=== PATIENT | male | born 1995 | race African-American/Black ===

== ENCOUNTER 2016-03-21 18:05 | Emergency (ER) | payer BC, MEDICAID ==
--- NOTE | 2016-03-21 19:42 | ERRECORD ---
[facility] EMERGENCY RECORD HPI FLU-LIKE SYNDROME (18:53 MPUR) CHIEF COMPLAINT: Patient presents for evaluation of body aches, sore throat, fever, Measured maximum temperature 100.5 degrees, taken orally. HISTORIAN: History provided by patient, onset this am of fever, body aches and pains, malaise. Has continued all day. LOCATION: Symptoms are generalized. ASSOCIATED WITH: No associated abdominal pain, No associated chest pain, No associated cough, No associated diarrhea, No associated headache, No associated neck pain, No associated rash, No associated shortness of breath, No associated urinary tract infection signs or symptoms. RELIEVED BY: Patient's condition relieved by nothing. ROS (18:53 MPUR) CONSTITUTIONAL: Historian reports chills, Historian reports fever, Historian reports malaise, Historian reports weakness. EYES: Historian denies eye pain, Historian denies eye redness, Historian denies eye discharge, Historian denies itching. ENT: Historian denies epistaxis, Historian denies hearing changes, Historian denies otalgia, Historian reports rhinorrhea, Historian denies sore throat. CARDIOVASCULAR: Historian denies chest pain, Historian denies dyspnea on exertion. RESPIRATORY: Historian denies cough, Historian denies shortness of breath, Historian denies wheezing. GI: Historian denies abdominal pain, Historian reports anorexia, Historian denies constipation, Historian denies diarrhea, Historian reports nausea,. MUSCULOSKELETAL: Historian reports arthralgias, Historian reports myalgias, Historian denies neck pain. SKIN: Historian denies pruritis, Historian denies rash, Historian denies skin lesions. NEUROLOGIC: Historian denies headache, Historian reports lethargy, Historian denies mental status changes, Historian denies sensory changes. ALLERGIC/IMMUNOLOGIC: Normal allergy/immunologic system review. NOTES: All systems reviewed, negative except as described above. PAST MEDICAL HISTORY (18:23 JPAR) MEDICAL HISTORY: Flu vaccine not up to date, Tetanus immunization up to date. MALE SURGICAL HISTORY: collar bone reconstruction/ mesh. KNOWN ALLERGIES No Known Drug Allergies &a-1R&a+25V*p+0X*[id number]*c202B*c15G*c2P*p-0X&a-25V&a+1R Name: Anthony James : 1995 M21 MedRec: [id number] AcctNum: [id number] Prepared: SunMar 22, 2016 00:02 by Interface Page 1 of 3 pMD [facility] EMERGENCY RECORD CURRENT MEDICATIONS (18:22 JPAR) None VITAL SIGNS VITAL SIGNS: BP: 128/75, Pulse: 117, Resp: 18, Temp: 99.6 (Oral), Pain: 7, O2 sat: 97, Time: 03/21/2016 18:17. (18:17 JPAR) BP: 110/57, Pulse: 97, Resp: 20, Temp: 100.9, O2 sat: 95 on RA, Time: 03/21/2016 19:15. (19:15 KASA) PHYSICAL EXAM (18:53 MPUR) CONSTITUTIONAL: Vital signs reviewed, Patient febrile, Blood pressure normal, Respiratory rate normal, Patient appears, uncomfortable, Patient appears in pain, in mild pain distress, Patient alert and oriented to person, place and time. HEAD: Head exam included findings of head atraumatic, normocephalic. EYES: Eye exam included findings of eyelids normal to inspection, Pupils equally round and reactive to light, Extraocular muscles intact, Conjunctiva normal, Sclera normal. ENT: Ear exam normal, Nose exam normal, Pharynx exam normal, Uvula exam normal, Tonsil exam normal, Mouth exam normal. NECK: Neck exam included findings of normal range of motion, Trachea midline, Thyroid normal. RESPIRATORY CHEST: Respiratory and chest exam normal, Breath sounds clear, No rales, No rhonchi, Chest exam included findings of chest movement symmetrical. CARDIOVASCULAR: Cardiovascular assessment normal, Cardiovascular exam included findings of heart rate regular rate and rhythm, Heart sounds normal. BACK: Back exam normal, Back exam included findings of normal inspection, range of motion normal, no tenderness, no costovertebral angle tenderness. UPPER EXTREMITY: Upper extremity exam included findings of inspection normal, Range of motion normal, Motor strength normal, Sensation intact, Radial pulse normal. LOWER EXTREMITY: Lower extremity exam included findings of inspection normal, Range of motion normal, Motor strength normal, Sensation intact. NEURO: Milagro coma scale 15, Neuro exam findings include patient oriented to person, place and time, Speech normal, Gait normal, Memory normal, Cranial nerves intact. SKIN: Skin exam included findings of skin warm, dry, and normal in color, no rash. PSYCHIATRIC: Psychiatric exam included findings of patient oriented to person place and time, Normal affect, Judgment normal, Insight normal, Remote memory normal. DOCTOR NOTES (18:53 MPUR) &a-1R&a+25V*p+0X*[id number]*c202B*c15G*c2P*p-0X&a-25V&a+1R Name: Anthony James : 1995 M21 MedRec: [id number] AcctNum: [id number] Prepared: SunMar 22, 2016 00:02 by Interface Page 2 of 3 pMD [facility] EMERGENCY RECORD TEXT: Sxs consistent with a strep. Have advised AB, fluids, fever control with Tylenol and/or ibuprofen, rest. pt instructed to follow up with the family physician in a few days if it continues to worsen. PROBLEM LIST No recorded problems DIAGNOSIS (19:01 MPUR) FINAL: PRIMARY: strep Throat. PRESCRIPTION (19:02 MPUR) Pen-Vee K: TABLET : 500 mg : ORAL : Quantity: 1 Unit: tab(s) Route: ORAL Schedule: 4 times a day Dispense: 40 May substitute. Refills: No Refills . NOTES: No Refills. DISPOSITION PATIENT: Disposition Type: Discharge, Disposition: *Discharge Home. (19:01 LINA) Patient left the department. (19:25 ROBE) Jewell: BHARATH=MATHEUS Phan, Jeremiah NAGEL=MATHEUS Field, Tracy MPUR=MD Gabriel, Terence &a-1R&a+25V*p+0X*[id number]*c202B*c15G*c2P*p-0X&a-25V&a+1R Name: Anthony James : 1995 M21 MedRec: [id number] AcctNum: [id number] Prepared: SunMar 22, 2016 00:02 by Interface Page 3 of 3 pMD MTDD
--- NOTE | 2016-03-21 20:13 | PICIS ---
[facility] EMERGENCY RECORD TRIAGE (SunMar 21, 2016 18:22 JPAR) TRIAGE NOTES: Flu like symptoms, and sore throat. (SunMar 21, 2016 18:22 JPAR) PATIENT: NAME: Anthony James, AGE: 21, GENDER: male, : Sun1995, TIME OF GREET: SunMar 21, 2016 18:06, PREFERRED LANGUAGE: Slovak, ETHNICITY: Not or , ECODE BILLING MAP: [facility], SSN: [id number], Zip Code: [address], KG WEIGHT: 97.52, PHONE: , , , PERSON ID: [id number], PCP: [facility]. (SunMar 21, 2016 18:22 JPAR) COMPLAINT: C/O HEADACHE,BODY ACHES SINCE TODAY,SORE THROAT. (SunMar 21, 2016 18:22 JPAR) ADMISSION: URGENCY: 4 Non Urgent, ADMISSION SOURCE: Home, TRANSPORT: CAR, BED: TRIAGE. (SunMar 21, 2016 18:22 JPAR) ASSESSMENT: Assessment: flu like symptoms, Symptoms began last night, Symptoms began yesterday. (18:23 JPAR) SIRS SCORING: Heart Rate 110-139 (2), Temp range 96.8-101.1 (0), respiratory rate 12-24 (0), Mental Status altered: no (0), Infection or Suspected Infection: No. (18:23 JPAR) TRIAGE SCREENING: Patient denies suicidal ideation, Patient denies presence of domestic violence. (18:23 JPAR) PROVIDERS: TRIAGE NURSE: Jeremiah Phan RN. (SunMar 21, 2016 18:22 JPAR) VITAL SIGNS: BP 128/75, Pulse 117, Resp 18, Temp 99.6, (Oral), Pain 7, O2 Sat 97, Time 03/21/2016 18:17. (18:17 JPAR) KNOWN ALLERGIES No Known Drug Allergies CURRENT MEDICATIONS (18:22 JPAR) None VITAL SIGNS VITAL SIGNS: BP: 128/75, Pulse: 117, Resp: 18, Temp: 99.6 (Oral), Pain: 7, O2 sat: 97, Time: 03/21/2016 18:17. (18:17 JPAR) BP: 110/57, Pulse: 97, Resp: 20, Temp: 100.9, O2 sat: 95 on RA, Time: 03/21/2016 19:15. (19:15 KASA) NURSING ASSESSMENT: FOCUSED CONSTITUTIONAL: Patient arrives ambulatory, Gait steady, History obtained from patient, Patient appears, uncomfortable, Patient cooperative, Patient alert, Oriented to person, place and time, Skin warm, Skin dry, Skin normal in color, Mucous membranes pink, Mucous membranes moist, Patient complains of Flu Like Symptoms, Dehydration, Headache since last night low grade temp, general body aches and pains. (18:22 JPAR) PAIN: aching pain, Onset of pain last night, on a scale 0-10 patient rates pain as 7, Headache. (18:22 JPAR) NEURO: Focused neuro assessment findings include patient alert, &a-1R&a+25V*p+0X*q4277Q*c202B*c15G*c2P*p-0X&a-25V&a+1R Name: Jacob Anthony Torres : 1995 M21 MedRec: [id number] AcctNum: [id number] Prepared: SunMar 22, 2016 00:08 by Interface Page 1 of 8 pMD [facility] EMERGENCY RECORD cooperative, No facial droop noted, Speech coherent, no weakness, no numbness, No loss of consciousness. (18:28 JPAR) RESPIRATORY: Focused respiratory assessment findings include breath sounds clear. (18:22 JPAR) NURSING PROCEDURE: BEDSIDE TESTING (18:28 JPAR) RAPID STREP: Rapid strep indicated for throat pain. SAFETY: Side rails up, Cart/Stretcher in lowest position, Family at bedside, Call light within reach, Hospital ID band on. NURSING PROCEDURE: DISCHARGE NOTE (19:15 KASA) DISCHARGE: Patient discharged to home, ambulating without assistance, family driving, accompanied by //partner, Summary of Care printed/ provided, Discharge instructions given to patient, Simple or moderate discharge teaching performed, Prescriptions given and instructions on side effects given, Name of prescription(s) given: Seun K;, Above person(s) verbalized understanding of discharge instructions and follow-up care. BELONGINGS: Belongings and valuables with patient upon arrival to the Emergency Department include:, Belongings and valuables with patient at time of discharge include:, Belongings remain with patient, Valuables remain with patient. SAFETY: Side rails up, Cart/Stretcher in lowest position, Family at bedside, Call light within reach, Hospital ID band on. VITAL SIGNS: BP: 110, / 57, Pulse: 97, Resp: 20, Temp: 100.9, O2 sat: 95, on: RA. NURSING PROCEDURE: ENT (18:22 JPAR) PATIENT IDENTIFIER: Patient actively involved in identification process, Patient's identity verified by patient stating name, Patient's identity verified by patient stating date, Patient's identity verified by hospital ID bracelet, Patient's identity verified by family member. ENT: ENT care indicated for specimen collection, Nasal swab collected, labeled in the presence of the patient and sent to lab for testing of, influenza A, influenza B. SAFETY: Side rails up, Cart/Stretcher in lowest position, Family at bedside, Call light within reach, Hospital ID band on. NURSING PROCEDURE: TEACHING (19:15 KASA) TEACHING: Simple or moderate teaching performed, by MATHEUS Moore, Pharyngitis: Strep [Confirmed] Your test for strep throat was positive. Strep throat is a contagious illness. It is spread by coughing, kissing or by touching others after touching your mouth or nose. Symptoms include throat pain which is worse with swallowing, aching all over, headache and fever. You will be treated with an antibiotic which should make you start to feel better within 1-2 days. Home Care: Rest at home and drink plenty of fluids to avoid dehydration. &a-1R&a+25V*p+0X*y6918Q*c202B*c15G*c2P*p-0X&a-25V&a+1R Name: Anthony James : 1995 M21 MedRec: [id number] AcctNum: [id number] Prepared: SunMar 22, 2016 00:08 by Interface Page 2 of 8 pMD [facility] EMERGENCY RECORD No school or work for the first two days on antibiotics. You will not be contagious after this time and if you are feeling better, you can return to school or work. Take your antibiotics for a full 10 days, even if you feel better after the first few days of treatment. This is very important to prevent heart or kidney disease that can result as a complication of untreated strep throat infection. Children: Use acetaminophen (Tylenol) for fever, fussiness or discomfort. In infants over six months of age, you may use ibuprofen (Children's Motrin) instead of Tylenol. [NOTE: If your child has chronic liver or kidney disease or ever had a stomach ulcer or GI bleeding, talk with your doctor before using these medicines.] (Aspirin should never be used in anyone under 18 years of age who is ill with a fever. It may cause severe liver damage.)Adults: You may use acetaminophen (Tylenol) or ibuprofen (Motrin, Advil) to control pain or fever, unless another medicine was prescribed for this. [NOTE: If you have chronic liver or kidney disease or ever had a stomach ulcer or GI bleeding, talk with your doctor before using these medicines.] Throat lozenges or sprays (Chloraseptic and others) will reduce pain. Gargling with warm salt water will also reduce throat pain. Dissolve 1/2 teaspoon of salt in 1 glass of warm water. This is especially useful just before meals. Follow Up with your doctor or as directed by our staff if you are not improving over the next week. Get Prompt Medical Attention if any of the following occur: Fever of 100.4F (38C) oral or higher, not better with fever medication New or worsening ear pain, sinus pain or headache Painful lumps in the back of your neck Unable to swallow liquids or open your mouth wide due to throat pain Trouble breathing or noisy breathing Muffled voice New rash PATIENT &/OR CAREGIVER VERBALIZED UNDERSTANDING OF THE TEACHING PROVIDED AND WAS ABLE TO DEMONSTRATE TEACHING EVIDENCED BY TEACH BACK. Simple or moderate teaching performed, by MATHEUS Molina, Prescriptions given and instructions on side effects given, Name of prescription(s) given: PEN-VEE K (PENICILLIN V) is a penicillin antibiotic. It is used to treat certain kinds of bacterial infections. It will not work for colds, flu, or other viral infections. SIDE EFFECTS THAT YOU SHOULD REPORT TO YOUR DOCTOR OR HEALTH REGULATORY AFFAIRS PORTFOLIO LEADER SOON POSSIBLE: allergic reactions like skin rash or hives, swelling of the face, lips, or tongue, breathing problems, fever, new symptoms of infection, redness, blistering, peeling or loosening of the skin, including inside the mouth, unusually weak or tired. SIDE EFFECTS THAT USUALLY DO NOT REQUIRE MEDICAL ATTENTION (REPORT TO YOUR DOCTOR OR HEALTH REGULATORY AFFAIRS PORTFOLIO LEADER IF THEY CONTINUE OR ARE BOTHERSOME): &a-1R&a+25V*p+0X*n0864T*c202B*c15G*c2P*p-0X&a-25V&a+1R Name: Anthony James : 1995 M21 MedRec: [id number] AcctNum: [id number] Prepared: SunMar 22, 2016 00:08 by Interface Page 3 of 8 pMD [facility] EMERGENCY RECORD diarrhea, headache, nausea, vomiting, sore mouth or tongue, stomach upset., Above person(s) verbalized understanding of teaching given, Notes: Additional information about the medication you were given and/or prescribed. Tell your doctor or health care giver if your symptoms do not improve. DO NOT TREAT DIARRHEA with over the counter products. Contact your DOCTOR if you have diarrhea that LASTS MORE THAN 2 DAYS OR IF IT IS SEVERE AND WATERY. If you have diabetes, you may get a false-positive result for sugar in your urine. Check with your doctor or health care giver. CONTROL PILLS may not work properly while you are taking this medicine. Talk to your doctor about using AN EXTRA METHOD OF CONTROL. How to take: Take this medicine by mouth with a full glass of water. Follow the directions on the prescription label. Take your medicine at regular intervals. Do not take your medicine more often than directed. Take all of your medicine as directed even if you think your are better. Do not skip doses or stop your medicine early. Talk to your automation and controls instructor regarding the use of this medicine in children. While this drug may be prescribed for selected conditions, precautions do apply. What if I miss a dose? If you miss a dose, take it as soon as you can. If it is almost time for your next dose, take only that dose. Do not take double or extra doses. Where should I keep my medicine? Keep out of the reach of children. Store at room temperature between 15 and 30 degrees C (59 and 86 degrees F). Keep container tightly closed. Throw away any unused medicine after the expiration date. Let your health care provided know if you have any of these conditions: asthma bowel disease, like colitis eczema kidney disease an unusual or allergic reaction to penicillin, cephalosporins, other antibiotics or medicines, foods, tartrazine or other dyes, or preservatives or trying to get breast-feeding What may interact with this medicine? control pills methotrexate other antibiotics probenecid some vaccines PATIENT &/OR CAREGIVER VERBALIZED UNDERSTANDING OF THE TEACHING &a-1R&a+25V*p+0X*x3684Z*c202B*c15G*c2P*p-0X&a-25V&a+1R Name: Anthony James : 1995 M21 MedRec: [id number] AcctNum: [id number] Prepared: SunMar 22, 2016 00:08 by Interface Page 4 of 8 pMD [facility] EMERGENCY RECORD PROVIDED AND WAS ABLE TO DEMONSTRATE TEACHING EVIDENCED BY TEACH BACK. ORDER DETAILS Order Name: Influenza A&B Ag Screen, Status: Active, Time: 18:25 03/21/2016, User: BHARATH, - Ordered for: MD Rios Marcus, - Entered by: MATHEUS Phan Jason - Tue Mar 21, 2016 18:25, - Quantity: 1, Order Name: Strep Group A Screen, Status: Active, Time: 18:26 03/21/2016, User: LINA, - Ordered for: MD Rios Marcus, - Entered by: MD Rios Marcus - Tue Mar 21, 2016 18:26, - Quantity: 1. HPI FLU-LIKE SYNDROME (18:53 MPUR) CHIEF COMPLAINT: Patient presents for evaluation of body aches, sore throat, fever, Measured maximum temperature 100.5 degrees, taken orally. HISTORIAN: History provided by patient, onset this am of fever, body aches and pains, malaise. Has continued all day. LOCATION: Symptoms are generalized. ASSOCIATED WITH: No associated abdominal pain, No associated chest pain, No associated cough, No associated diarrhea, No associated headache, No associated neck pain, No associated rash, No associated shortness of breath, No associated urinary tract infection signs or symptoms. RELIEVED BY: Patient's condition relieved by nothing. ROS (18:53 MPUR) CONSTITUTIONAL: Historian reports chills, Historian reports fever, Historian reports malaise, Historian reports weakness. EYES: Historian denies eye pain, Historian denies eye redness, Historian denies eye discharge, Historian denies itching. ENT: Historian denies epistaxis, Historian denies hearing changes, Historian denies otalgia, Historian reports rhinorrhea, Historian denies sore throat. CARDIOVASCULAR: Historian denies chest pain, Historian denies dyspnea on exertion. RESPIRATORY: Historian denies cough, Historian denies shortness of breath, Historian denies wheezing. GI: Historian denies abdominal pain, Historian reports anorexia, Historian denies constipation, Historian denies diarrhea, Historian reports nausea,. MUSCULOSKELETAL: Historian reports arthralgias, Historian reports myalgias, Historian denies neck pain. SKIN: Historian denies pruritis, Historian denies rash, Historian denies skin lesions. &a-1R&a+25V*p+0X*a9743H*c202B*c15G*c2P*p-0X&a-25V&a+1R Name: Anthony James : 1995 M21 MedRec: [id number] AcctNum: [id number] Prepared: SunMar 22, 2016 00:08 by Interface Page 5 of 8 pMD [facility] EMERGENCY RECORD NEUROLOGIC: Historian denies headache, Historian reports lethargy, Historian denies mental status changes, Historian denies sensory changes. ALLERGIC/IMMUNOLOGIC: Normal allergy/immunologic system review. NOTES: All systems reviewed, negative except as described above. PAST MEDICAL HISTORY (18:23 JPAR) MEDICAL HISTORY: Flu vaccine not up to date, Tetanus immunization up to date. MALE SURGICAL HISTORY: collar bone reconstruction/ mesh. PHYSICAL EXAM (18:53 MPUR) CONSTITUTIONAL: Vital signs reviewed, Patient febrile, Blood pressure normal, Respiratory rate normal, Patient appears, uncomfortable, Patient appears in pain, in mild pain distress, Patient alert and oriented to person, place and time. HEAD: Head exam included findings of head atraumatic, normocephalic. EYES: Eye exam included findings of eyelids normal to inspection, Pupils equally round and reactive to light, Extraocular muscles intact, Conjunctiva normal, Sclera normal. ENT: Ear exam normal, Nose exam normal, Pharynx exam normal, Uvula exam normal, Tonsil exam normal, Mouth exam normal. NECK: Neck exam included findings of normal range of motion, Trachea midline, Thyroid normal. RESPIRATORY CHEST: Respiratory and chest exam normal, Breath sounds clear, No rales, No rhonchi, Chest exam included findings of chest movement symmetrical. CARDIOVASCULAR: Cardiovascular assessment normal, Cardiovascular exam included findings of heart rate regular rate and rhythm, Heart sounds normal. BACK: Back exam normal, Back exam included findings of normal inspection, range of motion normal, no tenderness, no costovertebral angle tenderness. UPPER EXTREMITY: Upper extremity exam included findings of inspection normal, Range of motion normal, Motor strength normal, Sensation intact, Radial pulse normal. LOWER EXTREMITY: Lower extremity exam included findings of inspection normal, Range of motion normal, Motor strength normal, Sensation intact. NEURO: Milagro coma scale 15, Neuro exam findings include patient oriented to person, place and time, Speech normal, Gait normal, Memory normal, Cranial nerves intact. SKIN: Skin exam included findings of skin warm, dry, and normal in color, no rash. PSYCHIATRIC: Psychiatric exam included findings of patient &a-1R&a+25V*p+0X*t5638Z*c202B*c15G*c2P*p-0X&a-25V&a+1R Name: Anthony James : 1995 M21 MedRec: [id number] AcctNum: [id number] Prepared: SunMar 22, 2016 00:08 by Interface Page 6 of 8 pMD [facility] EMERGENCY RECORD oriented to person place and time, Normal affect, Judgment normal, Insight normal, Remote memory normal. EVENTS TRANSFER: Triage to Emergency Triage. (SunMar 21, 2016 18:22 BHARATH) Emergency Triage to Emergency Room -03. (18:22 BHARATH) Removed from Emergency Emergency Room -03. (19:25 ROBE) DOCTOR NOTES (18:53 MPUR) TEXT: Sxs consistent with a strep. Have advised AB, fluids, fever control with Tylenol and/or ibuprofen, rest. pt instructed to follow up with the family physician in a few days if it continues to worsen. PROBLEM LIST No recorded problems DIAGNOSIS (19:01 MPUR) FINAL: PRIMARY: strep Throat. DISPOSITION PATIENT: Disposition Type: Discharge, Disposition: *Discharge Home. (19:01 MPUR) Patient left the department. (19:25 KASA) INSTRUCTION (19:03 MPUR) DISCHARGE: PHARYNGITIS, STREP (CONFIRMED). FOLLOWUP: [facility], [address] [place] [address] , . SPECIAL: Take antibiotics, Drink lots of fluids. rest, Follow up as needed. PRESCRIPTION (19:02 MPUR) Pen-Vee K: TABLET : 500 mg : ORAL : Quantity: 1 Unit: tab(s) Route: ORAL Schedule: 4 times a day Dispense: 40 May substitute. Refills: No Refills . NOTES: No Refills. IMAGING *DISCHARGE INSTRUCTIONS RECEIPT: Image captured from scanner. (20:23 KASA) *SUPPLY CHARGE SHEET: Image captured from scanner. (20:24 KASA) ADMIN (SunMar 22, 2016 00:00 MPUR) DIGITAL SIGNATURE: MD Rios Marcus. RESULTS &a-1R&a+25V*p+0X*m5126U*c202B*c15G*c2P*p-0X&a-25V&a+1R Name: Anthony James : 1995 M21 MedRec: [id number] AcctNum: [id number] Prepared: SunMar 22, 2016 00:08 by Interface Page 7 of 8 pMD [facility] EMERGENCY RECORD MICROBIOLOGY: Strep Group A Screen: [id number] Collection DT: SunMar 21, 2016 18:35, See comment below , @ ER ROOM#: [id number] Source: Throat Spec Desc: PENDING, *Rapid Strep Screen:Throat Positive - H . (18:57 JPAR) Influenza A&B Ag Screen: [id number] Collection DT: SunMar 21, 2016 18:35, See comment below , @ ER ROOM#: [id number] Source: Nasal swab Spec Desc: , Influenza A Antigen: NEGATIVE for the , presence of , INFLUENZA A Antigen , Influenza B Antigen: NEGATIVE for the , presence of , INFLUENZA B Antigen , The rapid Flu A&B test can distinguish between influenza A , Influenza A&B Ag Screen See comment below , and B viruses, but it does not differentiate influenza , Influenza A&B Ag Screen See comment below , subtypes. , Influenza A&B Ag Screen See comment below , Influenza A&B Ag Screen See comment below , Influenza A&B Ag Screen See comment below , Influenza A&B Ag Screen See comment below , characteristics of this device with human specimens infected , Influenza A&B Ag Screen See comment below , with the 2008 H1N1 influenza virus have not been , Influenza A&B Ag Screen See comment below , established. For example: this test cannot distinguish , Influenza A&B Ag Screen See comment below , influenza infections caused by novel H1N1 influenza A , Influenza A&B Ag Screen See comment below , viruses versus seasonal influenza A viruses. , Influenza A&B Ag Screen See comment below , , Influenza A&B Ag Screen See comment below , A negative result does not exclude influenza virus , Influenza A&B Ag Screen See comment below , infection; therefore, if more conclusive testing is desired, , Influenza A&B Ag Screen See comment below , follow up confirmatory testing is warranted., Influenza A&B Ag Screen See comment below . (19:03 MPUR) Jewell: BHARATH=MATHEUS Phan, Jeremiah NAGEL=MATHEUS Field, Tracy MPUR=MD Gabriel, Terence &a-1R&a+25V*p+0X*w7318K*c202B*c15G*c2P*p-0X&a-25V&a+1R Name: Anthony James : 1995 M21 MedRec: [id number] AcctNum: [id number] Prepared: SunMar 22, 2016 00:08 by Interface Page 8 of 8 pMD MTDD
== END 2016-03-21 19:15 | disposition home or self-care (01) ==
LOC: NAV ERS 18:05
DX: J02.0 Streptococcal pharyngitis (principal)
CPT/HCPCS: 87430; 99283